=== PATIENT | male | born 1965 | race Hispanic/Latino ===

== ENCOUNTER → 2018-05-20 | Day surgery (SDC) | payer BC ==
[~2018-05-20] MED LIST: ABX PO; FENTANYL CITRATE/PF 100MCG/2 ML INJ ONE; MIDAZOLAM HCL 2 MG/2 ML VIAL ONE; PROPOFOL IV EMULSION 10 MG/ML 50 ML VIAL ONE
[2018-05-20 12:05] VITALS: BP 116/84
--- NOTE | 2018-05-20 12:32 | Operative Report ---
DATE OF PROCEDURE: May 20, 2018 REFERRING PHYSICIAN: Dr. Miramontes PROCEDURE PERFORMED: Colonoscopy and polypectomy with biopsies. INDICATIONS FOR COLONOSCOPY: Colorectal cancer screening. MEDICATION: Patient was done under MAC. Please see anesthesiologist's note. PROCEDURE: With the patient in the left lateral decubitus position, the flexible fiberoptic Olympus colonoscope was inserted into the rectum with ease and advanced all the way to the cecum. One polyp was snared from the cecum. The ascending and transverse appeared to be within normal limits. One polyp was hot biopsied from the descending colon. There were some patchy mild inflammatory changes noted in the left colon including the rectum, and random biopsies were obtained. The scope was then retroflexed into the distal rectum, and small internal hemorrhoids were noted, none of which was actively bleeding. The scope was then straightened out, and the rectosigmoid area as well as the distal rectal area were decompressed. Scope was subsequently withdrawn. Patient tolerated the procedure well. IMPRESSION 1. Cecal polyp, snared. 2. Descending colon polyp hot biopsied. 3. Mild, patchy, left-sided colitis. 4. Proctitis, mild. Biopsies obtained. 5. Internal hemorrhoids, none actively bleeding. PLAN: Follow up histology. Initiate Bentyl 10 mg 1 p.o. t.i.d. and VSL #3 one p.o. daily. Patient might benefit from a followup colonoscopy in 3 to 5 years. Job#: [id number] cc:CHATA MIRAMONTES MD
--- NOTE | 2018-05-20 13:35 | Diagnostic Imaging Report ---
ADDENDUM #1 Addendum: Indication: Prominent thyroid. Signed by: Dr. Jay Goyal MD on 05/25/2018 11:03 AM ORIGINAL REPORT EXAM: THYROID ULTRASOUND Date: 05/20/2018 12:12 PM Indication: Comparison: None Technique: Sonographic evaluation of the thyroid. Color doppler was utilized to supplement evaluation. FINDINGS: RIGHT: The right thyroid measures 49 x 16 x 20 mm. No suspicious nodules are identified. LEFT: The left thyroid measures 52 x 14 x 18 mm. No suspicious nodules are identified. ISTHMUS: 3 mm. ECHOTEXTURE: Overall homogeneous. IMPRESSION: Unremarkable thyroid ultrasound. Signed by: Dr. Jay Goyal MD on 05/20/2018 1:32 PM
== END | disposition home or self-care (01) ==
LOC: OR 08:41
PROVIDERS: ATTEND Internal Medicine Gastroenterology
DX: Z12.11 Encounter for screening for malignant neoplasm of colon (principal); D12.0 Benign neoplasm of cecum; K51.50 Left sided colitis without complications; K62.89 Other specified diseases of anus and rectum; K64.8 Other hemorrhoids; R03.0 Elevated blood-pressure reading, without diagnosis of hypertension; R05 Cough; Z01.810 Encounter for preprocedural cardiovascular examination; Z68.31 Body mass index [BMI] 31.0-31.9, adult; Z87.891 Personal history of nicotine dependence
CPT/HCPCS: 45380; 45384; 45385; 76536; 93005; J2250; 45378